=== PATIENT | female | born 1935 | race Caucasian/White ===

== ENCOUNTER 2016-07-04 06:24 | Day surgery (SDC) | payer MEDICARE, OTHER ==
[~2016-07-04] VITALS: Ht 149.9 cm; Wt 77.0 kg
[2016-07-04] VITALS (9 sets, daily range): BP systolic 112–151; BP diastolic 56–70; PULSE 52–68; RESP 12–20; Ht 149.9 cm; Wt 77.0 kg
[~2016-07-04 06:24] MED LIST: DIAZEPAM 5 MG TAB PO ONE; DIPHENHYDRAMINE 50 MG CAP PO ONE; EZET10TA3; FAMOTIDINE 20 MG TAB PO ONE; FERR-55; LEVO25TA53; METO-407 PO; NAPR125O4 PO; NIT4 SL; RANO10002 PO; SOD CHLORIDE 0.45% 1,000 ML IV SCH
[2016-07-04 07:58] LABS: ADD SCAN DIFF NO
[2016-07-04 08:13] LABS: BASOPHILS % 0.7 % (0.0-2.0); EOSINOPHILS # 0.1 10^3/ul (0.0-0.5); EOSINOPHILS % 1.6 % (0.0-7.0); HEMATOCRIT 33.7 % (37.0-47.0); HEMOGLOBIN 10.4 g/dl (12.0-16.0); LYMPHOCYTES # 1.5 10^3/ul (0.8-2.9); LYMPHOCYTES % 25.5 % (15.0-51.0); MEAN CORPUSCULAR HEMOGLOBIN 19.9 pg (29.0-33.0); MEAN CORPUSCULAR HGB CONC 30.9 g/dl (32.0-37.0); MEAN CORPUSCULAR VOLUME 64.6 fl (82.0-101.0); MEAN PLATELET VOLUME 11.9 fl (7.4-10.4); MONOCYTE # 0.4 10^3/ul (0.3-0.9); MONOCYTES % 6.9 % (0.0-11.0); NEUTROPHIL # 3.7 10^3/ul (1.6-7.5); NEUTROPHILS % 64.8 % (39.0-77.0); PLATELET COUNT 180 10^3/UL (140-415); RED BLOOD COUNT 5.22 10^6/ul (4.20-5.40); RED CELL DISTRIBUTION WIDTH 15.1 % (11.5-14.5); WHITE BLOOD COUNT 5.7 10^3/ul (4.8-10.8)
[2016-07-04 08:16] LABS: INR 1.06; PARTIAL THROMBOPLASTIN TIME 30.7 Sec (25.0-35.0); PROTIME 13.8 Sec (12.2-14.2); PT RATIO 1.1
[2016-07-04 08:19] LABS: CHOL/HDL RATIO 2.8 RATIO
[2016-07-04] MEDS ORDERED: IODIXANOL LOCM 100 ML BTL ONE (08:20)
[2016-07-04] MEDS ORDERED: FENTAnyl 50 MCG/ML VIAL ONE (08:20)
[2016-07-04] MEDS ORDERED: HEPARIN 1000 UNITS/ML 10 ML INJ ONE ×2 (08:20→08:28)
[2016-07-04] MEDS ORDERED: VERAPAMIL 5 MG INJ ONE (08:20)
[2016-07-04] MEDS ORDERED: LIDOCAINE 1% (MDV) 20 ML INJ ONE (08:20)
[2016-07-04] MEDS ORDERED: NITROGLYCERIN (IC) 100 MCG/ML INJ ONE (08:20)
[2016-07-04] MEDS ORDERED: MIDAZOLAM 1 MG/ML 2 ML INJ ONE (08:20)
[2016-07-04] MEDS ORDERED: SOD CHLORIDE 0.9% 500 ML ONE (08:21)
[2016-07-04 08:28] LABS: CALCIUM 9.3 mg/dl (8.4-10.2); CREATININE 0.67 mg/dl (0.44-1.00)
--- NOTE | 2016-07-04 08:33 | RADRPT ---
PROCEDURE: XR Chest. CLINICAL INDICATION: Chest pain TECHNIQUE: Single frontal view of the chest was obtained COMPARISON: 05/18/2013 FINDINGS: The heart is enlarged. The thoracic aorta is calcified. The lungs are clear. There is no pleural effusion or pneumothorax. RPTAT: AA IMPRESSION: Mild to moderate cardiomegaly. Calcified aorta consistent with atherosclerotic disease. .Arthur Werner MD, MD Date Time Electronically viewed and signed by .Arthur Werner MD, on 07/04/2016 08:33 .S/
[2016-07-04] MEDS ORDERED: ASPI81TA3 PO (08:40)
[2016-07-04] MEDS ORDERED: ISOS30TA18 PO (08:40)
[2016-07-04] MEDS ORDERED: [UNRECOGNIZED DRUG - CODE] PO (08:41)
[2016-07-04] MEDS ORDERED: MECL-77 PO (08:41)
--- NOTE | 2016-07-04 10:36 | RADRPT ---
Vent Rate: 60 bpm RR Interval: 0 msec [place] Interval: 162 msec QRS Duration: 76 msec QT Interval: 440 msec QTC Interval: 440 msec P-R-T [place]: 50 - 8 - 55 degrees Normal sinus rhythm Normal ECG Electronically Signed By: Alex Pires [id number]
[2016-07-04] MEDS ORDERED: SOD CHLORIDE 0.9% 1,000 ML IV SCH (10:46)
[2016-07-04] MEDS ORDERED: ONDANSETRON 4 MG INJ IV PRN (11:00)
[2016-07-04] MEDS ORDERED: AL HYDROX/MG HYDROX/SIMETH 30 ML CUP PO PRN (11:00)
[2016-07-04] MEDS ORDERED: ACETAMINOPHEN 325 MG TAB PO PRN (11:00)
[2016-07-04] MEDS ORDERED: morphine 2 MG INJ IV PRN (11:00)
--- NOTE | 2016-07-04 11:11 | CARRPT ---
DATE OF PROCEDURE: 07/04/2016 TYPE OF PROCEDURE: 1. Left heart catheterization. 2. Coronary angiography. 3. Perclose closure device to right femoral artery. 4. Femoral angiography. ATTENDING PHYSICIAN: Jhonny Esquivel MD REFERRING PHYSICIAN: Amish Darby MD TYPE OF ANESTHESIA: Conscious and local. INDICATION: Chest pain, positive stress test, assess for ischemia. BRIEF HISTORY: Ms. Mckeon is an 81-year-old female with history of hypertension, dyslipidemia, chris nary artery disease, nonobstructive, who initially had complaints of substernal chest pain. The pat ient underwent cardiac stress test revealing positive inferior ischemia. Given these findings, the patient was referred for and presents today in order to undergo left heart catheterization to assess for the possibility of significant obstructive coronary artery disease lending to her symptoms of c hest pain and subsequent positive stress test findings. PROCEDURE: After informed consent was obtained, the patient was brought to the [facility] cardiac catheterization lab where her right femoral artery was prepped and draped in the [facility] sterile fashion. Lidocaine 2% was infiltrated in the right femoral artery in order to achieve a dequate anesthesia. With modified Seldinger technique, the right groin was cannulated and a 6-Frenc h arterial sheath was placed. A 6-Vietnamese JL4 cardiac catheter was used to cannulate the left main c oronary ostium. With contrast injection, multiple views of the left coronary arterial system were o btained. JL4 was removed over a guidewire and a JR4 was used to cannulate the right coronary arteri al ostium. With contrast injection, multiple views of the right coronary arterial system were obtai yasmeen. JR4 was removed over a guidewire and a 6-Vietnamese pigtail was passed up the aorta across the aor tic valve into the LV. Left ventricular end-diastolic pressure was measured. Using a power injecto r, 20 mL of contrast was injected opacifying the left ventricle. Pigtail catheter then pulled back across the aortic valve to assess for significant gradient, which there was not and subsequently rem debra. A final angiographic image of the right femoral arterial insertion site was then obtained, re vealing the sheath to be well placed in the right common femoral artery. Subsequently, a 6-Vietnamese P erclose device used to seal the vessel completing the procedure. There were no noted complications. FINDINGS: Coronary angiography: Left main 4 mm with an ostial 20% stenosis. The circumflex proximally is a 3 .5 mm vessel and has no significant focal stenoses throughout its entirety. It gives off a very siz able obtuse marginal 3.5 mm vessel with a 20% proximal stenosis, very tortuous, thereafter, but no o ther significant focal stenoses. LAD proximally is 3.5 mm, proximally and has just a bend approxima tely 30 to 40% ostial proximal stenosis. The remainder of the LAD thereafter is free of significant focal stenoses. It goes around the apex. There is a mid branching diagonal 2 mm with no significa nt focal stenoses. The right coronary artery proximally is a 3.5 mm vessel and has a proximal 30% s tenosis. The remainder of the right coronary artery thereafter is free of significant focal stenose s, gives off a 2 mm PDA and a 2 mm posterolateral branch, each with no significant focal stenoses. Left ventriculogram revealed a preserved left ventricular ejection fraction of 60%, left ventricular end-diastolic pressure of 10 pre-LV gram, 12 post-LV gram. No significant aortic stenosis by gradi ent, 1+ mitral regurgitation. TOTAL FLUOROSCOPY TIME: 3 minutes. TOTAL CONTRAST: 90 mL. IMPRESSION: 1. Moderate nonobstructive coronary artery disease. 2. Preserved left ventricular systolic function. 3. Normal left heart filling pressures. 4. No significant aortic stenosis by gradient. 5. 1+ mitral regurgitation. RECOMMENDATIONS: In light of procedure and findings at this time would: 1. Maximize medical management. 2. Aggressive risk factor reduction. 3. The patient will be readmitted to the same day surgery center for post-catheterization observati on and continued management of symptoms with probable discharge later this afternoon. 4. The patient will have a follow up appointment in our office to ensure she has had no post-cathet erization groin complications and discuss results with her. Dictated By: JHONNY GUARDADO/YUSUF Conf#: [id number] DID#: [id number] CC: AMISH DARBY MD;*EndCC*
== END 2016-07-04 15:30 | disposition home or self-care (01) ==
LOC: SDS 06:24
PROVIDERS: ATTEND Internal Medicine
DX: I25.10 Atherosclerotic heart disease of native coronary artery without angina pectoris (principal); I10 Essential (primary) hypertension
CPT/HCPCS: 71010; 80048; 80061; 85025; 85610; 85730; 93005; 93458; C1760; C1769; C1887; C1894; J1644; J2250; J3010; J7040; Q9967

== ENCOUNTER → 2018-05-26 | Outpatient (CLI) | payer MEDICARE, OTHER ==
[~2018-05-26] MED LIST changes: +ASPI-903 PO; -DIAZEPAM 5 MG TAB PO ONE; -DIPHENHYDRAMINE 50 MG CAP PO ONE; -EZET10TA3; +EZET10TA31; -FAMOTIDINE 20 MG TAB PO ONE; +IOHEXOL 100 ML ONE; +ISOS30TA20 PO; -LEVO25TA53; +LEVO25TA6; +MECL-77 PO; +METOPROLOL 5 MG INJ ONE; -NIT4 SL; +NITR0.4T39 SL; +NITROGLYCERIN AEROSOL (4.9 GM) ONE; +NITROGLYCERIN AEROSOL (4.9 GM) SL ONE; -SOD CHLORIDE 0.45% 1,000 ML IV SCH; +SOD CHLORIDE 0.9% 100 ML ONE; +[UNRECOGNIZED DRUG - CODE] PO
== END | disposition home or self-care (01) ==
LOC: LAB 09:34
PROVIDERS: ATTEND Internal Medicine
DX: R07.9 Chest pain, unspecified (principal)
CPT/HCPCS: 75571; 75574; 80048; Q9967